=== PATIENT | male | born 1995 | race American Indian/Alaskan Native ===

== ENCOUNTER 2021-11-08 14:50 | Emergency (ER) | payer BC ==
--- NOTE | 2021-11-08 17:41 | Emergency Department Report ---
ED Lower Extremity HPI - General Chief Complaint: Extremity Injury, Lower Stated Complaint: LT FOOT PAIN/INJURY Time Seen by Provider: 11/08/21 17:28 Source: patient, RN notes reviewed Mode of arrival: Ambulatory Limitations: No Limitations - History of Present Illness Initial Comments: The patient was evaluated in the emergency department for symptoms described in the history of present illness. He/she was evaluated in the context of the global COVID-19 pandemic, which necessitated consideration that the patient might be at risk for infection with the virus that causes COVID-19. Institutional protocols and algorithms that pertain to the evaluation of patients at risk for COVID-19 are in a state of rapid change based on information released by regulatory bodies including the CDC and federal and state organizations. These policies and algorithms were followed during the patient's care in the emergency department. Please note that these policies, procedures and recommendations changed on a rapid basis. Patient is a 26-year-old gentleman who presents to the ER with a complaint of left heel pain after running over the weekend. He has not taken any bcbl-gkd-kaemwob analgesia. The pain is sharp and throbbing. It increases with palpation. It decreases with rest. Patient not amenable to taking Tylenol or ibuprofen, and reports he is only interested in "natural remedies." Denies additional injuries and complaints MD Complaint: foot injury -: days(s) Injury: Foot: Left Type of Injury: unknown Improves With: rest Worsens With: weight bearing, movement, palpation Context: other (Patient was running) Associated Symptoms: swelling, able to partially bear weight - Related Data Allergies Allergy/AdvReac Type Severity Reaction Status Date / Time No Known Allergies Allergy Verified 11/08/21 15:33 ED Review of Systems ROS: Stated complaint: LT FOOT PAIN/INJURY Other details as noted in HPI Comment: All other systems reviewed and negative Musculoskeletal: joint swelling, arthralgia, myalgia ED Past Medical Hx - Past Medical History Hx Diabetes: Yes ED Physical Exam - General Limitations: No Limitations General appearance: alert, in no apparent distress - Head Head exam: Present: atraumatic, normocephalic - Eye Eye exam: Present: normal appearance, EOMI. Absent: nystagmus - ENT ENT exam: Present: normal exam, normal orophraynx, mucous membranes moist, normal external ear exam - Neck Neck exam: Present: normal inspection, full ROM. Absent: tenderness, meningismus - Respiratory Respiratory exam: Present: normal lung sounds bilaterally. Absent: respiratory distress, wheezes, rales, rhonchi, stridor, decreased breath sounds - Cardiovascular Cardiovascular Exam: Present: regular rate, normal rhythm, normal heart sounds. Absent: bradycardia, tachycardia, irregular rhythm, systolic murmur, diastolic murmur, rubs, gallop - GI/Abdominal GI/Abdominal exam: Present: soft. Absent: distended, tenderness, guarding, rebound, rigid, pulsatile mass - Rectal Rectal exam: Present: deferred - Extremities Exam Extremities exam: Present: normal inspection, full ROM, tenderness (There is point tenderness to the left posterior calcaneus. The Diamond test is intact. There is no metatarsal tenderness. There is soft tissue tenderness on the plantar aspect of the) - Back Exam Back exam: Present: normal inspection - Neurological Exam Neurological exam: Present: alert, oriented X3 - Psychiatric Psychiatric exam: Present: normal affect, normal mood - Skin Skin exam: Present: warm, dry, intact, normal color. Absent: rash ED Course Vital Signs 11/08/21 15:32 Temperature 98.0 F Pulse Rate 69 Respiratory 15 Rate Blood Pressure 147/96 O2 Sat by Pulse 100 Oximetry - Reevaluation(s) Reevaluation #1: 11/08/21 18:48 Patient declined pain medication. ED Lower Extremity MDM - Lab Data Vital Signs 11/08/21 15:32 Temperature 98.0 F Pulse Rate 69 Respiratory 15 Rate Blood Pressure 147/96 O2 Sat by Pulse 100 Oximetry - Radiology Data Radiology results: pending, report reviewed, image reviewed LEFT FOOT 3 VIEW(S) INDICATION / CLINICAL INFORMATION: left foot pain COMP ARISON: None available. FINDINGS: BONES / JOINT(S): No acute fracture or subluxation. No significant arthritis. SOFT TISSUES: Mild soft tissue swelling of the heel pad. ADDITIONAL FINDINGS: None. LEFT CALCANEUS 2 VIEW(S) INDICATION / CLINICAL INFORMATION: left foot pain COMPARISON: None available. FINDINGS: BONES / JOINT(S): No acute fracture or subluxation. No significant arthritis. SOFT TISSUES: Mild soft tissue swelling of the heel pad. ADDITIONAL FINDINGS: None. Signer Name: Vi Brown MD Signed: 11/08/2021 5:15 PM LEFT FOOT 3 VIEW(S) INDICATION / CLINICAL INFORMATION: left foot pain COMPARISON: None available. FINDINGS: BONES / JOINT(S): No acute fracture or subluxation. No significant arthritis. SOFT TISSUES: Mild soft tissue swelling of the heel pad. ADDITIONAL FINDINGS: None. LEFT CALCANEUS 2 VIEW(S) INDICATION / CLINICAL INFORMATION: left foot pain COMPARISON: None available. FINDINGS: BONES / JOINT(S): No acute fracture or subluxation. No significant arthritis. SOFT TISSUES: Mild soft tissue swelling of the heel pad. ADDITIONAL FINDINGS: None. Signer Name: Vi Brown MD Signed: 11/08/2021 5:15 PM Workstation Name: [id number] - Medical Decision Making Differential diagnosis, including but not limited to: Stress fracture, sprain, strain, plantar fasciitis Assessment and plan: 26-year-old gentleman with isolated left calcaneal pain and tenderness, Diamond test functional and intact, minimal plantar foot tenderness, without evidence of redness, pus, streaking, or neurovascular compromise. X-rays show no fracture or dislocation. Rest, ice, compression, elevation, alternate Tylenol and Motrin [id number], weightbearing as tolerated, and outpatient follow-up. Critical care attestation.: If time is entered above; I have spent that time in minutes in the direct care of this critically ill patient, excluding procedure time. ED Disposition Clinical Impression: Left foot pain Disposition: 01 HOME / SELF CARE / HOMELESS Is pt being admited?: No Does the pt Need Aspirin: No Condition: Stable Instructions: Plantar Fasciitis Rehab-SportsMed Additional Instructions: Patient may alternate ice packs and heat packs to the lower extremity as needed for physical pain. Patient may take usgh-sez-[id number] ibuprofen with uljf-hws-wbuqhpt acetaminophen as needed for physical pain. Patient may weight-bear as tolerated, recommend avoidance of strenuous physical activity, heavy duty lifting until cleared to do so by her primary care doctor, orthopedist or diesel truck mechanic. Recommend follow-up with a diesel truck mechanic, orthopedist or sports medicine physician for left foot pain within the next week. [facility] is a local orthopedic group. Dr. Barrera is a local diesel truck mechanic. Recommend that patient wear athletic shoes that have good arch support. Patient may also consider purchasing heel insoles for improved arch support. Please return to the emergency room right away with new pain, worsened pain, migration of pain, projectile vomiting, change in mental status, confusion, inability tolerate liquid feeds, new, worsened or different symptoms not present on the initial emergency room evaluation Referrals: MARAH BARRERA DPM [Staff Physician] - 3-5 Days [facility] [Provider Group] - 3-5 Days Forms: Work/School Release Form(ED)
--- NOTE | 2021-11-08 18:19 | XRay Report ---
LEFT FOOT 3 VIEW(S) INDICATION / CLINICAL INFORMATION: left foot pain COMPARISON: None available. FINDINGS: BONES / JOINT(S): No acute fracture or subluxation. No significant arthritis. SOFT TISSUES: Mild soft tissue swelling of the heel pad. ADDITIONAL FINDINGS: None. LEFT CALCANEUS 2 VIEW(S) INDICATION / CLINICAL INFORMATION: left foot pain COMPARISON: None available. FINDINGS: BONES / JOINT(S): No acute fracture or subluxation. No significant arthritis. SOFT TISSUES: Mild soft tissue swelling of the heel pad. ADDITIONAL FINDINGS: None. Signer Name: Vi Brown MD Signed: 11/08/2021 6:15 PM Workstation Name: [id number]
[2021-11-08 19:53] VITALS: BP 132/68
== END 2021-11-08 19:54 | disposition home or self-care (01) ==
LOC: ED 14:50
DX: M79.672 Pain in left foot (principal)
CPT/HCPCS: 99283